=== PATIENT | male | born 1940 | race Caucasian/White ===

== ENCOUNTER 2017-02-16 08:28 | Emergency (ER) | payer OTHER, MEDICARE ==
[~2017-02-16] VITALS: Ht 175.3 cm; Wt 92.1 kg
[~2017-02-16 08:28] MED LIST: BABY ASPIRIN CH81 MG PO; DILTIAZEM HCL240 MG PO; JANUMET 500 MG-1 TAB PO; LIPITOR 40MG40 MG PO
--- NOTE | 2017-02-16 08:44 | ED ANKLE/FOOT INJURY COMPLAINT ---
History of Present Illness General Chief Complaint: Foot or Ankle Injury Stated Complaint: LEFT ANKLE PAIN,SWELLING AND BRUISING Source: patient, old records Exam Limitations: no limitations Vital Signs & Intake/Output Vital Signs & Intake/Output Vital Signs Date Time Temp Pulse Resp B/P B/P Pulse O2 O2 Flow FiO2 Mean Ox Delivery Rate 02/16 1019 126/82 02/16 0835 98.3 76 15 132/61 100 Room Air Allergies Coded Allergies: NO KNOWN ALLERGIES (02/24/14) Reconcile Medications Amlodipine Besylate 5 MG TABLET 1 TAB PO DAILY HTN (Reported) Aspirin (Aspirin*) 81 MG TAB.CHEW 1 TAB PO EOD HEART HEALTH (Reported) Carvedilol 6.25 MG TABLET 1 TAB PO BID HEART HEALTH (Reported) Furosemide 20 MG TABLET 1 TAB PO DAILY HEART HEALTH (Reported) Olmesartan Medoxomil (Benicar) 40 MG TABLET 1 TAB PO DAILY HTN (Reported) Potassium Chloride 20 MEQ TAB.ER.PRT 1 TAB PO DAILY HEART HEALTH (Reported) Rivaroxaban (Xarelto) 20 MG TABLET 1 TAB PO DAILY HEART HEALTH BLD THINNER ( Reported) with food Rosuvastatin Calcium (Crestor) 40 MG TABLET 1 TAB PO DAILY HYPERLIPIDEMIA ( Reported) Sitagliptin Phos/Metformin HCl (Janumet 50-500 MG Tablet) 50 MG-500 MG TABLET 1 TAB PO BID BLD SUGAR (Reported) Triage Note: PT TO ED FOR BRUISING TO MEDIAL SIDE OF L ANKLE, PT REPORTING HE 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 Triage Nurses Notes Reviewed? yes HPI: Patient bumped his left lower leg, just above the ankle on the corner of his dresser 2 days ago. Now area is swollen and ecchymotic. Patient also has noticed blisters on the area. Patient is on straw alto but is concerned about a blood clot. Patient denies any pain. There are no fevers or chills. There is no radiation. Patient denies any chest pain or shortness of breath. Past History Travel History Traveled to [place] past 21 day No Medical History Any Pertinent Medical History? 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 Hx Contributory? No Review of Systems Review of Systems Constitutional: Reports: no symptoms. Respiratory: Reports: no symptoms. Cardiovascular: Reports: no symptoms. GI: Reports: no symptoms. Musculoskeletal: Reports: see HPI. Neurological/Psychological: Reports: no symptoms. Immunologic/Allergic: Reports: no symptoms. Physical Exam Physical Exam General Appearance: well developed/nourished, alert, awake Eyes: Bilateral: PERRL, EOMI. Ears, Nose, Throat: normal pharynx, normal ENT inspection, hearing grossly normal Neck: normal inspection, supple, full range of motion Cardiovascular/Respiratory: normal breath sounds, normal peripheral pulses, regular rate/rhythm, no respiratory distress Leg/Knee/Thigh Left: normal range of motion, swelling, ECCHYMOSIS AND BLOOD BLISTER. NO SIGNS OF INFECTION Leg/Knee/Thigh Right: normal range of motion, normal inspection Neuro/Vascular: normal motor function, normal sensation Progress Differential Diagnosis: DVT, contusion Plan of Care: Orders Procedure Date/time Status US-DUPLEX VENOUS EXTREM UNI 02/17 844 Active XRY-ANKLE 3 OR MORE VIEWS L 02/16 834 Active Diagnostic Imaging: Viewed by Me: Ultrasound. Discussed w/RAD: Ultrasound. Radiology Impression: PATIENT: JENNIFER VAUGHN PRESENT AGE: 76 PATIENT ACCOUNT NO: [id number] : 38 LOCATION: [facility] ORDERING PHYSICIAN: TASHA FUNEZ MD SERVICE DATE: 02/16/17 EXAM TYPE: US - US-DUPLEX VENOUS EXTREM UNI EXAMINATION: US TRIPLEX LOWER EXTREMITY, LEFT CLINICAL INFORMATION: Left lower extremity edema. COMPARISON: None TECHNIQUE: Color-flow triplex imaging with spectral analysis and compression Doppler were performed on the lower extremity. FINDINGS: Respiratory variation, normal compression and augmented flow are noted throughout the left lower extremity. The visualized common femoral vein, superficial femoral vein, profunda femoral vein, popliteal vein and midcalf peroneal and posterior tibial venous segments show no evidence of deep venous thrombosis. There is no Moseley's cyst. IMPRESSION: Normal triplex scan without evidence of deep venous thrombosis involving the lower extremity. DICTATED BY: JIMI ORNELAS MD DATE/TIME DICTATED :02/16/17933 WREATH MACHINE OPERATOR:SEBASTIAN DATE/TIME TRANSCRIBED:02/16/17933 CONFIDENTIAL, DO NOT COPY WITHOUT APPROPRIATE AUTHORIZATION. < Electronically signed in Other Vendor System> SIGNED BY: JIMI ORNELAS MD 02/16/1738 Departure Departure Disposition: HOME OR SELF CARE Condition: Stable Clinical Impression Primary Impression: Contusion of left leg Qualifiers: Encounter type: initial encounter Qualified Code: S80.12XA - Contusion of left lower leg, initial encounter Referrals: BESSY ROSALES,LORENZA Anthony (PCP/Family) Additional Instructions: RETURN IF SYMPTOMS WORSEN OR FOR ANY CONCERNS Departure Forms: Customer Survey General Discharge Information
[2017-02-16] MEDS ORDERED: BENICAR40 M1 PO (08:51)
[2017-02-16] MEDS ORDERED: CARVEDILOL6.25 M1 PO (08:51)
[2017-02-16] MEDS ORDERED: XARELTO20 M2 PO (08:51)
[2017-02-16] MEDS ORDERED: CRESTOR40 M2 PO (08:52)
[2017-02-16] MEDS ORDERED: FUROSEMIDE20 M1 PO (08:52)
[2017-02-16] MEDS ORDERED: POTASSIUM CHLO20 ME2 PO (08:53)
[2017-02-16] MEDS ORDERED: AMLODIPINE BESYL5 M1 PO (08:53)
[2017-02-16] MEDS ORDERED: ASPIRIN81 M4 PO (08:56)
[2017-02-16] MEDS ORDERED: JANUMET 50-5001 EACH PO (08:56)
--- NOTE | 2017-02-16 09:38 | ULTRASOUND REPORT ---
EXAMINATION: US TRIPLEX LOWER EXTREMITY, LEFT CLINICAL INFORMATION: Left lower extremity edema. COMPARISON: None TECHNIQUE: Color-flow triplex imaging with spectral analysis and compression Doppler were performed on the lower extremity. FINDINGS: Respiratory variation, normal compression and augmented flow are noted throughout the left lower extremity. The visualized common femoral vein, superficial femoral vein, profunda femoral vein, popliteal vein and midcalf peroneal and posterior tibial venous segments show no evidence of deep venous thrombosis. There is no Moseley's cyst. IMPRESSION: Normal triplex scan without evidence of deep venous thrombosis involving the lower extremity.
[2017-02-16 10:19] VITALS: BP 126/82
== END 2017-02-16 10:20 ==
LOC: ERH 08:28
DX: S80.12XA Contusion of left lower leg, initial encounter (principal); M79.89 Other specified soft tissue disorders; M25.572 Pain in left ankle and joints of left foot; W22.03XA Walked into furniture, initial encounter; Y92.9 Unspecified place or not applicable; Y93.9 Activity, unspecified

== ENCOUNTER 2018-05-07 02:40 | Emergency (ER) | payer OTHER, MEDICARE ==
[~2018-05-07] VITALS: Ht 175.3 cm; Wt 88.5 kg
[~2018-05-07 02:40] MED LIST changes: +AMLODIPINE BESYL5 M1 PO; +ASPIRIN81 M4 PO; +BENICAR40 M1 PO; +CARVEDILOL6.25 M1 PO; +CRESTOR40 M2 PO; +FUROSEMIDE20 M1 PO; +JANUMET 50-5001 EACH PO; +POTASSIUM CHLO20 ME2 PO; +XARELTO20 M2 PO
--- NOTE | 2018-05-07 05:07 | ED NOSE COMPLAINT ---
History of Present Illness General Chief Complaint: Epistaxis/Nasal Foreign Body Stated Complaint: EPITAXIS ON BLOOD THINNERS Source: patient Exam Limitations: no limitations Vital Signs & Intake/Output Vital Signs & Intake/Output Vital Signs Date Time Temp Pulse Resp B/P B/P Pulse O2 O2 Flow FiO2 Mean Ox Delivery Rate 05/07 0315 Room Air 05/07 0246 97.7 89 18 136/93 95 Room Air Allergies Coded Allergies: NO KNOWN ALLERGIES (02/24/14) Reconcile Medications Amlodipine Besylate 5 MG TABLET 1 TAB PO DAILY HTN (Reported) Aspirin (Aspirin*) 81 MG TAB.CHEW 1 TAB PO EOD HEART HEALTH (Reported) Carvedilol 6.25 MG TABLET 1 TAB PO BID HEART HEALTH (Reported) Furosemide 20 MG TABLET 1 TAB PO DAILY HEART HEALTH (Reported) Olmesartan Medoxomil (Benicar) 40 MG TABLET 1 TAB PO DAILY HTN (Reported) Potassium Chloride 20 MEQ TAB.ER.PRT 1 TAB PO DAILY HEART HEALTH (Reported) Rivaroxaban (Xarelto) 20 MG TABLET 1 TAB PO DAILY HEART HEALTH BLD THINNER ( Reported) with food Rosuvastatin Calcium (Crestor) 40 MG TABLET 1 TAB PO DAILY HYPERLIPIDEMIA ( Reported) Sitagliptin Phos/Metformin HCl (Janumet 50-500 MG Tablet) 50 MG-500 MG TABLET 1 TAB PO BID BLD SUGAR (Reported) Triage Note: PT TO ED C/O EPISTAXIS FOR 2 HRS 15 MINS. TAKES ELEQUIS FOR AFIB. SEEN IN MARCH FOR SAME. DENIES SOB OR DIZZINESS Triage Nurses Notes Reviewed? yes Onset: Abrupt Duration: minute(s):, constant, changing over time, continues in ED, getting worse Timing: single episode today Injury Environment: home (WHILE ASLEEP) Severity: severe HPI: Patient presents for evaluation of epistaxis that began shortly prior to arrival. Patient is currently taking Eliquis for cardiac history. The bleeding began out of the left nostril. Past History Travel History Traveled to [place] past 21 day No Medical History Any Pertinent Medical History? 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 Hx Contributory? No Review of Systems Review of Systems Constitutional: Reports: no symptoms. EENTM: Reports: see HPI. Respiratory: Reports: no symptoms. Cardiovascular: Reports: no symptoms. GI: Reports: no symptoms. Genitourinary: Reports: no symptoms. Musculoskeletal: Reports: no symptoms. Skin: Reports: no symptoms. Neurological/Psychological: Reports: no symptoms. Hematologic/Endocrine: Reports: no symptoms. Immunologic/Allergic: Reports: no symptoms. All Other Systems: Reviewed and Negative Physical Exam Physical Exam Nose: SEE BELOW Comments: Gen.: Well-nourished, well-developed, no acute respiratory distress. Head: Normocephalic, atraumatic. Eyes: Normal inspection bilaterally Ears: Normal inspection bilaterally Nose: Red blood dripping from left nostril with no apparent trauma to the nose Throat/mouth : Moist mucosa Neck: Supple, full range of motion, no goiter Lungs: Quiet respirations Back: Normal range of motion Extremities: Normal range of motion grossly, no cyanosis clubbing or edema of the upper extremities Neurologic: Cranial nerves grossly intact, speech is clear Skin: warm and dry Psychiatric: Calm, cooperative, no apparent delusions or hallucinations Progress Differential Diagnoses I considered the following diagnoses in my evaluation of the patient: Plan of Care: SEE D/C INSTRUCTIONS Initial ED EKG: none Comments: 05/07/2018 5:04:53 AM Rhino Rocket placed in left nostril with cessation of bleeding. Departure Departure Disposition: HOME OR SELF CARE Condition: Stable Clinical Impression Primary Impression: Epistaxis Referrals: Jamila ROSALES,Samuel Anthony (PCP/Family) Additional Instructions: Keep the balloon catheter in place until you see your nose and throat doctor in follow-up (DR VILLANUEVA [phone]). Please call his office today to arrange for follow-up appointment in 3-5 days. Please contact your wild life photographer today regarding continuing your "blood thinner"-the Eliquis. Notify your primary care physician of this emergency department visit and treatment plan. Return if any concerns or sudden worsening. Thank you for choosing the [facility] Emergency Department for your care. It was a pleasure to serve you today. Siva Henry M.D. [facility] Departure Forms: Customer Survey General Discharge Information Procedures Epistaxis/Nasal Foreign Body Status: bleeding Ext Pressure/Nose Pinch (min): 20 Inspected With: nasal speculum Nasal Rocket: Left: Inserted Anterior, Inserted Posterior.
[2018-05-07] MEDS ORDERED: BACTRIM DS TAB1 EACH PO (05:10)
[2018-05-07 05:16] VITALS: BP 129/88
== END 2018-05-07 05:17 ==
LOC: ERH 02:40
DX: R04.0 Epistaxis (principal)